=== PATIENT | female | born 1995 | race Caucasian/White ===

== ENCOUNTER 2024-07-24 07:14 | Outpatient (CLI) | payer BC ==
[2024-07-24 07:44] LABS: BASOPHILS # (AUTO) 0.1 X10'3 (0-0.2); BASOPHILS % (AUTO) 0.6 % (0-1); EOSINOPHILS # (AUTO) 0.1 X10'3 (0-0.9); EOSINOPHILS % (AUTO) 0.7 % (0-6); HEMATOCRIT 40.3 % (35.0-45.0); HEMOGLOBIN 13.3 g/dl (12.0-16.0); LYMPHOCYTES # (AUTO) 3.4 X10'3 (1.1-4.8); LYMPHOCYTES % (AUTO) 30.8 % (21-51); MEAN CORPUSCULAR HEMOGLOBIN 27.9 PG (27.0-31.0); MEAN CORPUSCULAR VOLUME 84.3 FL (78-98); MEAN PLATELET VOLUME 9.9 FL (7.4-10.4); MONOCYTES # (AUTO) 0.7 X10'3 (0-0.9); MONOCYTES % (AUTO) 6.5 % (2-12); NEUTROPHILS # (AUTO) 6.7 X10'3 (1.8-7.7); NEUTROPHILS % (AUTO) 61.4 % (42-75); PLATELET COUNT 258 X10'3 (140-440); RED BLOOD COUNT 4.78 X10'6 (4.20-5.60); RED CELL DISTRIBUTION WIDTH 13.5 % (11.5-14.5)
[2024-07-24 08:24] LABS: ALANINE AMINOTRANSFERASE 53 U/L (12-78); ALBUMIN 3.8 G/DL (3.4-5.0); ALBUMIN/GLOBULIN RATIO 0.8 (1.1-1.5); ALKALINE PHOSPHATASE 120 IU/L (46-116); ANION GAP 8 (8-16); ASPARTATE AMINO TRANSFERASE 18 U/L (10-37); BILIRUBIN,TOTAL 0.3 MG/DL (0.1-1.0); BLOOD UREA NITROGEN 20 MG/DL (7-18); BUN/CREATININE RATIO 30.3 (10.0-20.0); CALCIUM 9.1 MG/DL (8.5-10.1); CHLORIDE 103 MMOL/L (99-107); CREATININE 0.66 MG/DL (0.40-0.90); GLUCOSE 96 MG/DL (70-104); POTASSIUM 3.6 MMOL/L (3.5-5.1); SODIUM 137 MMOL/L (135-145); TOTAL CARBON DIOXIDE 25.9 MMOL/L (24-32); TOTAL PROTEIN 8.7 G/DL (6.4-8.2); eGFR > 90 ML/MIN
[2024-07-24 08:26] LABS: CHOL/HDL RATIO 3.1 (0.00-4.99); CHOLESTEROL 203 MG/DL (0-200); FREE T4 (FREE THYROXINE) 1.13 NG/DL (0.73-1.40); HDL CHOLESTEROL 66 MG/DL (35-60); LDL CHOLESTEROL 120 MG/DL (50-100); THYROID STIMULATING HORMONE 3.02 ulU/ml (0.34-4.50); TRIGLYCERIDES 89 MG/DL (20-135)
[2024-07-24 09:23] LABS: HEMOGLOBIN A1C 5.6 % (4.5-6.2)
== END 2024-07-24 23:59 | disposition home or self-care (01) ==
LOC: LAB 07:14
PROVIDERS: ATTEND Nurse Practitioner
DX: R53.83 Other fatigue (principal); R79.89 Other specified abnormal findings of blood chemistry
CPT/HCPCS: 36415; 80053; 80061; 83036; 84439; 84443; 85025

== ENCOUNTER 2024-09-03 03:31 | Emergency (ER) | payer BC, OTHER ==
[~2024-09-03] VITALS: Ht 154.9 cm; Wt 88.6 kg
[2024-09-03 03:36] VITALS: TEMP 98.4
--- NOTE | 2024-09-03 03:44 | Physician Documentation ---
History of Present Illness ~ Chief Complaint: Body Fluid Exposure Stated Complaint: W/C EXPOSURE RISK Time Seen by MD: 03:40 HPI Patient presents to the emergency room after exposure by a patient patient patient has an employee of our facility and had bloody snot blown on her face. No other complaints Medication Reconciliation Allergies: Coded Allergies: No Known Allergies (Unverified , 09/03/24) Review of Systems ROS All review of systems negative except as per HPI Physical Exam Vital Signs: Temperature: 98.4, Source: Oral, Heart Rate: 108, Respiratory Rate: 16, BP: 132/90, Pulse Oximetry: 97, Weight: 88.640 Oxygen Flow Rate: 0 Physical Exam General: Patient is awake, alert, oriented x4 in no acute distress and well appearing.~ Head: Normocephalic and atraumatic. Eyes: Conjunctival normal. EOMI. PERRL. ENT: Mucous membranes moist. Neck: Supple, trachea is midline. Chest: Clear to auscultation bilaterally without rales, rhonchi, or wheezes. There is no accessory muscle use or retractions. Cardiac: RRR without murmurs, gallops, or rubs. Progress Results/Orders Results/Orders Vital Signs 09/03/24 03:36 Temp 98.4 Pulse 108 Resp 16 B/P (MAP) 132/90 Pulse Ox 97 O2 Flow Rate 0 Medical Decision Making Findings Patient presents to the emergency room after body fluid exposure. Post exposure prophylaxis initiated. Patient is to follow up with occupational health to [facility]. Departure Disposition: HOME / SELF CARE / HOMELESS Impression: Primary Impression: Employee exposure to body fluids Condition: Stable Discharge Instructions: Body Fluid Exposure Additional Instructions: Follow up with occupational health tomorrow Referrals: NO PRIMARY CARE PROVIDER (PCP) Signature Scribe Signature: No scribe Attestation: The note accurately reflects work and decisions made by me.Jericho Tejeda MD 09/03/24 03:44 JERICHO TEJEDA MD September 03, 2024 03:44
[2024-09-03 03:46] VITALS: BP 135/92; PULSE 100; RESP 16; O2SAT 98
== END 2024-09-03 04:07 | disposition home or self-care (01) ==
LOC: ER 03:31
DX: Z77.21 Contact with and (suspected) exposure to potentially hazardous body fluids (principal)
CPT/HCPCS: 99281